=== PATIENT | female | born 1975 | race Caucasian/White ===

== ENCOUNTER → 2018-04-09 | Outpatient (REF) ==
--- NOTE | 2018-04-10 04:02 | REP ---
Clinical: Pain. Technique: AP, lateral, coned-down views of the lumbosacral spine. Findings: Alignment and lordosis maintained without acute fracture / compression injury or subluxation. Moderate multilevel degenerative changes include endplate sclerosis with early marginal spurring/osteophyte formation. Disc spaces are relatively well maintained although mild disc space narrowing at L5-S1 cannot be excluded. Impression: Moderate multilevel degenerative changes. Electronically Signed by Michael Perrin MD 04/10/2018 03:54 A
--- NOTE | 2018-04-10 04:05 | REP ---
Clinical: Neck pain. Technique: AP, lateral, swimmers, open mouth views of the cervical spine. Findings: Straightening of normal lordosis noted. Moderate/early advanced multilevel degenerative changes from C4-5 through C6-7 includes marginal osteophytes, endplate sclerosis and minimal disc space narrowing. No acute fracture / compression injury or subluxation. Open mouth view demonstrates normal C1-C2 articulation and odontoid process. Impression: Moderate multilevel degenerative spondylosis. Electronically Signed by Michael Perrin MD 04/10/2018 03:57 A
== END ==
LOC: M SMT 10:03
PROVIDERS: ATTEND Internal Medicine
DX: Z02.89 Encounter for other administrative examinations (principal)